=== PATIENT | male | born 1950 | race Caucasian/White ===

== ENCOUNTER → 2017-01-09 | Outpatient (CLI) | payer MEDICARE, OTHER ==
[2017-01-09 10:35] LABS: HIV 1/2 Antibodies Non-Reactive; HIV-1p24 Antigen Non-Reactive
== END ==
LOC: COL.LAB 09:28
PROVIDERS: Orthopaedic Surgery
DX: Z01.812 Encounter for preprocedural laboratory examination (principal); M17.11 Unilateral primary osteoarthritis, right knee

== ENCOUNTER 2018-04-05 06:20 | Day surgery (SDC) | payer MEDICARE, OTHER ==
[~2018-04-05] VITALS: Ht 167.6 cm; Wt 68.2 kg
[2018-04-05 06:50] VITALS: BP 135/84; PULSE 66; TEMP 98.6
[2018-04-05] MEDS ORDERED: MULTI VITAMINS1 TAB PO (07:00)
[2018-04-05] MEDS ORDERED: LEADER ALL DAY PO (07:01)
[2018-04-05] MEDS ORDERED: MAGNESIUM500 MG PO (07:01)
[2018-04-05] MEDS ORDERED: VITAMIN C500 MG PO (07:01)
[2018-04-05] MEDS ORDERED: CALCIUM CARBON650 M2 PO (07:01)
[2018-04-05] MEDS ORDERED: NATURAL E400 IU PO (07:02)
[2018-04-05] MEDS ORDERED: B COMPLEX #11 TA1 PO (07:02)
[2018-04-05 08:12] VITALS: BP 122/76; PULSE 70; TEMP 98.2
--- NOTE | 2018-04-05 08:12 | NUR ---
Pt to [facility] via cart from [employer]. Pt drowsy, but awake. Denies pain or nausea. Pt ambulates to recliner with stand by assistance. Warm blankets provided. Juice and muffins given. Will continue to monitor. Call light within reach.
[2018-04-05 08:30] VITALS: BP 123/66; PULSE 59
--- NOTE | 2018-04-05 08:30 | NUR ---
Pt continues to rest. Denies needs. Call light with reach.
[2018-04-05 08:45] VITALS: BP 106/61; PULSE 58
--- NOTE | 2018-04-05 08:45 | NUR ---
Pt dozing on and off. Denies needs. Call light within reach.
[2018-04-05 09:00] VITALS: BP 105/65; PULSE 60
--- NOTE | 2018-04-05 09:00 | NUR ---
Pt continues to rest. Denies needs. Call light within reach.
--- NOTE | 2018-04-05 09:10 | NUR ---
Discharge instructions reviewed. Pt voices understanding. IV site discontinued with all parts intact. Pt up to dress. Call light within reach.
--- NOTE | 2018-04-05 09:20 | NUR ---
Pt escorted to private car via wheel chair. Pt accompanied home by his son.
== END 2018-04-05 09:20 | disposition home or self-care (01) ==
LOC: SDCO 06:20
DX: Z12.11 Encounter for screening for malignant neoplasm of colon (principal)
CPT/HCPCS: J2250; J2405; J3010; J7030